=== PATIENT | male | born 1965 | race Caucasian/White ===

== ENCOUNTER 2017-05-26 05:54 | Emergency (ER) | payer SELFPAY ==
[~2017-05-26] VITALS: Ht 170.2 cm; Wt 89.8 kg
--- NOTE | 2017-05-26 06:07 | Emergency Room Report ---
History of Present Illness Present Illness HPI Patient was brought in by EMS for year-old complaint. When he got here he said he doesn't want to be here and left. I did not see the patient. He left before triage. GIANNI GRECO M.D. May 26, 2017 06:07
[2017-05-26 06:48] VITALS: BP 0/0
== END 2017-05-26 06:48 | disposition left against medical advice (07) ==
LOC: EDBD 05:54 → EMR 06:05
DX: Z53.21 Procedure and treatment not carried out due to patient leaving prior to being seen by health care provider (principal)
CPT/HCPCS: 99281